=== PATIENT | female | born 1975 | race Hispanic/Latino ===

== ENCOUNTER 2019-11-08 19:00 | Observation (INO) | payer BC ==
[~2019-11-08 19:00] MED LIST: Iopamidol-370 76% 500 ML 1 ML ONE
--- NOTE | 2019-11-08 20:10 | RAD ---
2 view chest: [11/08/2019] Comparison:01/26/2004 HISTORY: Cough FINDINGS: Heart and mediastinal contours are grossly unremarkable. No pneumothorax or pleural fluid. No focal consolidation or alveolar edema. IMPRESSION: No acute findings.
[2019-11-08 20:43] LABS: #Basophils 0.1 thou/uL (0.0-0.2); #Lymphocytes 1.8 thou/uL (1.20-3.40); #Monocytes 0.4 thou/uL (0.11-0.59); #Neutrophils 7.4 thou/uL (1.40-6.50); %Basophils 0.5 % (0.0-1.0); %Eosinophils 0.3 % (0.0-10.0); %Lymphocytes 18.3 % (21.0-51.0); %Monocytes 4.3 % (0.0-10.0); %Neutrophils 76.5 % (42.0-75.0); Mean Corpuscular HGB CONC 33.6 g/dL (32.0-36.0); Mean Corpuscular Volume 89.4 fL (78.0-98.0); Mean Platelet Volume 8.2 fL (7.4-10.4); Platelet Count 282 thou/uL (130-400); RBC Distribution Width 12.4 % (11.5-14.5); White Blood Cell (WBC) Count 9.6 thou/uL (4.8-10.8)
[2019-11-08 20:51] LABS: BHCG - Serum Negative (NEGATIVE); Pregs Control Background? CLEAR/WHITE (CLR/WHITE); Pregs Control Bar Appear? YES (CONTROL BAR)
[2019-11-08 21:06] LABS: ALT (SGPT) 15 U/L (8-55); AST (SGOT) 13 U/L (5-34); Albumin 4.6 g/dL (3.5-5.0); Alkaline Phosphatase 82 U/L (40-110); Anion Gap 13 mmol/L (10-20); BUN (Urea Nitrogen) 9 mg/dL (7.0-18.7); Bilirubin, Total 0.3 mg/dL (0.2-1.2); Calc. Creatinine Clearance 0 mL/min (70-130); Calcium 9.1 mg/dL (7.8-10.44); Carbon Dioxide 25 mmol/L (22-29); Chloride 104 mmol/L (98-107); Estimated GFR-MDRD 81; Globulin 3.8 g/dL (2.4-3.5); Glucose 118 mg/dL (70-105); Potassium 3.8 mmol/L (3.5-5.1); Protein, Total 8.4 g/dL (6.0-8.3); Sodium 138 mmol/L (136-145)
--- NOTE | 2019-11-08 22:47 | CT ---
CT angiogram chest: 11/08/2019 COMPARISON: None HISTORY: Cough and shortness of breath for one week TECHNIQUE: Axial CT imaging at 2.5 mm intervals through the chest with IV contrast using CT angiogram protocol with coronal and sagittal 3-D reformatted imaging FINDINGS: There is an 8 mm hypodense nodule within the left lobe of the thyroid gland. There are mild ly prominent nonenlarged prevascular lymph nodes. There is a mildly enlarged subcarinal lymph node measuring 1.4 cm. No hilar or axillary adenopathy. Limited assessment of the upper abdomen demonstrat es no acute findings. The imaged lung apices are unremarkable. There is extensive nonspecific reticulonodular (tree in bud) opacity within the left upper lobe with a superior/posterior predominance. Reticulonodular densities are also seen throughout the inferior portion of bilateral lower lobes and within the posterior/inferior aspect of the right middle lobe. T he right upper lobe appears grossly unremarkable. No evidence for pulmonary arterial embolism is appreciated on this examination. No endobronchial lesi on is evident. No acute osseous abnormality is seen. IMPRESSION: Extensive nonspecific reticular nodular densities bilaterally suggesting multilobar are a typical infectious pneumonitis. Short-term follow-up chest CT following treatment is advised to document resolution following treatment in 4-6 weeks. No evidence for pulmonary arterial embolism CODE T
[2019-11-09] MEDS ORDERED: cefTRIAXone\\ROCEPHIN 2 GM VIAL ONE (00:04)
[2019-11-09] MEDS ORDERED: Azithromycin 500 MG VIAL ONE (00:33)
--- NOTE | 2019-11-09 00:53 | HP ---
PRIMARY CARE PHYSICIAN: Dr. Ofelia El. CHIEF COMPLAINT: Chest tightness and cough and I can't breathe. HISTORY OF PRESENT ILLNESS: Ms. Smith is a pleasant 44-year-old female who has no significant past medical history. She says that her problems started Wednesday of last week when she started noticing some tightness in her chest. She says she was at work and noticed that she was having trouble breathing. She said she was also feeling extremely hot as well. She went to a walk-in clinic and they did a flu swab and told her she probably had a viral infection or chest cold and sent her home with some symptomatic medicines, but no antibiotics. She says that on Wednesday she was having symptoms off and on and could barely sleep. She went to the ER and they noticed that her blood pressure was elevated. They did an EKG and told her that she had a high temperature and was told that she had a bronchitis. It is reported that her chest x-ray was normal. Then on Wednesday, she was feeling a little better but than by Wednesday, she was starting to feel bad again. She went to see her primary care physician who prescribed clarithromycin as well as a Medrol dose pack. She took the medicines yesterday and this morning, but said that she was getting progressively worse, was not feeling any better, still could not breathe and came to the ER for evaluation. In the ER, she had a chest x-ray, which was essentially negative. CT scan of the chest revealed some reticular nodular pattern, possibly infiltrates and she is being admitted for failed outpatient treatment for probable pneumonia. The patient denies any headaches or dizziness. She did feel a little lightheaded. Denies any pain in her chest, but does admit to the dyspnea, primarily with the coughing. No diarrhea or loose stools. She says she has maintained a good appetite. Otherwise, no other complaints. REVIEW OF SYSTEMS: All systems were reviewed and are negative except for that mentioned in the history of present illness. PAST MEDICAL HISTORY: Negative. PAST SURGICAL HISTORY: She has had a hysterectomy about 2 years ago, bilateral tubal ligation in 2011, surgery for a thyroglossal cyst. ALLERGIES: NO KNOWN DRUG ALLERGIES. SOCIAL HISTORY: She is a former smoker. She quit 5 years ago. She used to smoke about a pack a month. She smoked for about 10 years. Denies any alcohol use. She is single, has 2 children. 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 FAMILY HISTORY: Significant for asthma, hypertension, thyroid disease and borderline diabetes on her mother's side and high cholesterol in her father side. CURRENT MEDICATIONS: Include: 1. Clarithromycin. 2. Albuterol inhaler. 3. Medrol dose pack. PHYSICAL EXAMINATION: GENERAL: She is alert and oriented. She appears to be in no acute distress. She is well developed and well nourished. VITAL SIGNS: Blood pressure 158/80, heart rate 83, respiratory rate of 16, temperature is 98.8 and O2 saturation is 98% on room air. HEENT: Pupils are equal, round, and reactive. Extraocular muscles are intact. Her sclerae are anicteric. There is no erythema, no exudates. NECK: No adenopathy, no bruits. LUNGS: She has some bilateral wheezing as well as rales in both of her lung ortega. CARDIOVASCULAR: She has a normal S1, S2. There is no S3 or S4. No murmurs, clicks or rubs. ABDOMEN: Obese. It is soft, nontender, and nondistended. Positive for bowel sounds. No rebound or guarding. No organomegaly. EXTREMITIES: There is no clubbing, cyanosis. No edema. No calf tenderness. No joint effusions. NEUROLOGIC: Her cranial nerves 12 are intact. Muscle strength is also intact. SKIN AND INTEGUMENT: No skin changes, no rash. LABORATORY DATA: White blood cell count is 9.6, hemoglobin is 15, hematocrit is 44.7, and platelet count is 282. Sodium 138, potassium 3.8, chloride is 104, CO2 is 25, BUN of 9, creatinine 0.78, glucose is 118. Troponin less than 0.010. IMAGING: CT angiogram again, there was evidence for extensive nonspecific reticular nodular densities bilaterally suggesting multilobar and atypical infectious pneumonitis. Chest x-ray was essentially clear and this is by my reading, there is no cardiomegaly, no infiltrates. ASSESSMENT: This is a pleasant 44-year-old female who presents with cough and shortness of breath. Radiographic evidence of atypical pneumonia. She has only had one day of the clarithromycin, which should take care of an atypical process. However, since she was so symptomatic, she will be admitted, started on IV azithromycin and Rocephin, IV steroids and DuoNeb. We will also get a viral respiratory panel and place her on deep venous thrombosis and gastrointestinal prophylaxis and further recommendations to follow. Job ID: [id number]
[2019-11-09] MEDS ORDERED: Acetaminophen 325 MG TAB PO PRN (01:01)
[2019-11-09] MEDS ORDERED: hydrALAZINE 20 MG/ML VIAL SLOW IVP PRN (01:01)
[2019-11-09] MEDS ORDERED: guaiFENesin/Codeine Phosphate 200 mg/20 mg 10 ml UD Cup PO PRN (01:01)
[2019-11-09 01:03] VITALS: BMI 47.8
[2019-11-09 05:45] LABS: #Basophils 0.1 thou/uL (0.0-0.2); #Eosinphils 0.1 thou/uL (0.0-0.7); #Lymphocytes 2.8 thou/uL (1.20-3.40); #Monocytes 0.7 thou/uL (0.11-0.59); #Neutrophils 7.8 thou/uL (1.40-6.50); %Basophils 0.5 % (0.0-1.0); %Eosinophils 0.7 % (0.0-10.0); %Lymphocytes 24.6 % (21.0-51.0); %Monocytes 5.9 % (0.0-10.0); %Neutrophils 68.3 % (42.0-75.0); Mean Corpuscular HGB CONC 33.5 g/dL (32.0-36.0); Mean Corpuscular Hemoglobin 29.9 pg (27.0-31.0); Mean Corpuscular Volume 89.3 fL (78.0-98.0); Mean Platelet Volume 8.1 fL (7.4-10.4); Platelet Count 262 thou/uL (130-400); RBC Distribution Width 12.3 % (11.5-14.5); Red Blood Cell (RBC) Count 4.67 mill/uL (4.20-5.40); White Blood Cell (WBC) Count 11.5 thou/uL (4.8-10.8)
[2019-11-09 06:04] LABS: Anion Gap 14 mmol/L (10-20); BUN (Urea Nitrogen) 11 mg/dL (7.0-18.7); Calc. Creatinine Clearance 179 mL/min (70-130); Calcium 8.6 mg/dL (7.8-10.44); Carbon Dioxide 23 mmol/L (22-29); Chloride 105 mmol/L (98-107); Estimated GFR-MDRD 89; Glucose 104 mg/dL (70-105); Potassium 3.7 mmol/L (3.5-5.1); Sodium 138 mmol/L (136-145)
[2019-11-09] MEDS: Enoxaparin Sodium 40 MG/0.4 ML SYRINGE SC SCH (08:11)
[2019-11-09] MEDS ORDERED: methylPREDNISolone Sod Succ 40 MG VIAL IVP SCH (09:00)
--- NOTE | 2019-11-09 11:15 | PRG ---
DATE OF SERVICE: 11/09/2019 SUBJECTIVE: The patient is seen and examined at the bedside. She is coughing up some greenish looking phlegm. She feels better, but she is very tired. OBJECTIVE: VITAL SIGNS: Blood pressure is 151/87; pulse is 78; respiratory rate is 20; temperature is 97.9, maximal temperature is 99.3; pulse oximetry is 93% on room air. HEENT: Head is atraumatic and normocephalic. Eyes are PERRLA. Sclerae are nonicteric. Oral mucosa is moist. NECK: Supple. LUNGS: Bilateral rales and crackles at both bases. HEART: S1, S2 normal. No S3. No S4. ABDOMEN: Soft, nontender, nondistended. EXTREMITIES: No clubbing, cyanosis, or edema. NEUROLOGIC: Intact. LABORATORY DATA: Showed white count of 11.5, hemoglobin of 14.0, hematocrit 41.6, platelet count is 262,000. Chemistry is within normal limits. test is negative. Microbiology, respiratory virus panel negative. Influenza A and B GISELE negative. IMPRESSION: 1. Atypical pneumonia. 2. Morbid obesity. PLAN: Continue azithromycin. Continue Solu-Medrol 40 mg q.12 for now. Continue ceftriaxone. Gram stain of sputum culture to be done. Continue DVT prophylaxis and continue DuoNebs. Job ID: [id number]
[2019-11-09] MEDS ORDERED: cefTRIAXone\\ROCEPHIN 1 GM in Sodium Chloride 0.9% 100 ML IVPB SCH (23:59)
[2019-11-10] MEDS ORDERED: Azithromycin 500 MG in Sodium Chloride 0.9% 250 ML 250 ML IVPB SCH (01:00)
[2019-11-10] MEDS: Enoxaparin Sodium 40 MG/0.4 ML SYRINGE SC SCH (09:01)
[2019-11-10 12:29] VITALS: BP 147/79; TEMP 98.1
--- NOTE | 2019-11-12 00:59 | EKG ---
Test Reason : Blood Pressure : / mmHG Vent. Rate : 080 BPM Atrial Rate : 080 BPM P-R Int : 136 ms QRS Dur : 094 ms QT Int : 362 ms P-R-T Axes : 056 099 053 degrees QTc Int : 417 ms Normal sinus rhythm Rightward axis Borderline ECG Confirmed by GARRY BRO DO ([id number]), editor managing director FABIOLA SANABRIA ([id number] on 11/12/2019 12:59:29 AM Referred By: Confirmed By:GARRY BRO DO
== END 2019-11-10 12:57 | disposition home or self-care (01) ==
LOC: ERS 19:00 → T4-A 22:21
PROVIDERS: ADMIT Internal Medicine; ATTEND Internal Medicine
DX: J18.9 Pneumonia, unspecified organism (principal); E66.01 Morbid (severe) obesity due to excess calories; Z68.42 Body mass index [BMI] 45.0-49.9, adult; Z79.899 Other long term (current) drug therapy; Z87.891 Personal history of nicotine dependence
CPT/HCPCS: 36415; 71046; 71275; 80048; 80053; 83880; 84484; 84703; 85025; 87070; 87205; 87633; 87804; 93005; 94640; 96365; 96367; 96372; 96375; G0378; J0456; J0696; J1650; J2920; J3490; J7050; J7620; Q9967

== ENCOUNTER 2020-02-02 09:13 | Outpatient (CLI) | payer BC ==
--- NOTE | 2020-02-02 10:50 | CT ---
CT CHEST WITHOUT CONTRAST: Date: 02/02/2020 COMPARISON: CTA chest dated 11/08/2019. HISTORY: Nodular density seen on prior CTA of the chest. TECHNIQUE: Multiple contiguous axial images were obtained in a CT of the chest without contrast. Sagittal and co geneva reformats were performed. FINDINGS: No pulmonary nodules seen on the current examination. The previously seen nodular densities have reso lved and likely represent an infectious process or pulmonary edema. No pneumothorax or pleural effusi ons seen. The heart is normal in size. No hilar or mediastinal lymphadenopathy seen. The visualized subdiaphragmatic structures are unremarkable. The bones are unremarkable. The chest wa ll soft tissues are unremarkable. IMPRESSION: Resolution of previously seen nodular densities in the lungs. No acute intrathoracic abnormality is s een. POS: EAA
== END 2020-02-02 09:14 | disposition home or self-care (01) ==
LOC: CT 09:13
PROVIDERS: ATTEND Internal Medicine Critical Care Medicine
DX: J18.9 Pneumonia, unspecified organism (principal)
CPT/HCPCS: 71250

== ENCOUNTER 2021-02-20 16:09 | Outpatient (CLI) | payer BC | END 2021-02-20 16:10 | disposition home or self-care (01) | LOC: BICMAMMO 16:09 | PROVIDERS: ATTEND Internal Medicine | DX: Z12.31 Encounter for screening mammogram for malignant neoplasm of breast (principal) | CPT/HCPCS: 77063; 77067 ==

== ENCOUNTER 2021-02-20 19:00 | Outpatient (CLI) | payer BC | END 2021-02-20 19:01 | disposition home or self-care (01) | LOC: SLEEPLAB 19:00 | PROVIDERS: ATTEND Internal Medicine | DX: G47.33 Obstructive sleep apnea (adult) (pediatric) (principal); R53.83 Other fatigue; R06.83 Snoring; K21.9 Gastro-esophageal reflux disease without esophagitis; G47.00 Insomnia, unspecified; G47.10 Hypersomnia, unspecified; E66.9 Obesity, unspecified; Z68.43 Body mass index [BMI] 50.0-59.9, adult | CPT/HCPCS: 95810 ==

== ENCOUNTER 2021-07-01 19:30 | Outpatient (CLI) | payer BC | END 2021-07-01 19:31 | disposition home or self-care (01) | LOC: SLEEPLAB 19:30 | PROVIDERS: ATTEND Internal Medicine | DX: G47.33 Obstructive sleep apnea (adult) (pediatric) (principal); K21.9 Gastro-esophageal reflux disease without esophagitis; R06.83 Snoring; R53.83 Other fatigue; G47.10 Hypersomnia, unspecified; E66.9 Obesity, unspecified; Z68.43 Body mass index [BMI] 50.0-59.9, adult | CPT/HCPCS: 95811 ==

== ENCOUNTER 2021-10-21 16:33 | Emergency (ER) | payer BC ==
[2021-10-21 17:26] LABS: #Eosinphils 0.1 thou/uL (0.0-0.7); #Lymphocytes 2.1 thou/uL (1.20-3.40); #Monocytes 0.7 thou/uL (0.11-0.59); #Neutrophils 4.4 thou/uL (1.40-6.50); %Eosinophils 1.6 % (0.0-10.0); %Lymphocytes 28.9 % (21.0-51.0); %Monocytes 8.8 % (0.0-10.0); %Neutrophils 60.6 % (42.0-75.0); Hemoglobin 14.1 g/dL (12.0-16.0); Mean Corpuscular Hemoglobin 29.6 pg (27.0-31.0); Mean Corpuscular Volume 89.9 fL (78.0-98.0); Mean Platelet Volume 7.9 fL (7.4-10.4); Platelet Count 222 thou/uL (130-400); Red Blood Cell (RBC) Count 4.77 mill/uL (4.20-5.40); White Blood Cell (WBC) Count 7.3 thou/uL (4.8-10.8)
[2021-10-21 17:45] LABS: ALT (SGPT) 20 U/L (8-55); AST (SGOT) 15 U/L (5-34); Albumin 4.3 g/dL (3.5-5.0); Alkaline Phosphatase 77 U/L (40-110); Anion Gap 12 mmol/L (10-20); BUN (Urea Nitrogen) 10 mg/dL (7.0-18.7); Bilirubin, Total 0.2 mg/dL (0.2-1.2); Calc. Creatinine Clearance 0 mL/min (70-130); Calcium 9.1 mg/dL (7.8-10.44); Carbon Dioxide 27 mmol/L (22-29); Chloride 103 mmol/L (98-107); Globulin 3.8 g/dL (2.4-3.5); Glucose 91 mg/dL (70-105); Lipase 26 U/L (8-78); Potassium 3.8 mmol/L (3.5-5.1); Protein, Total 8.1 g/dL (6.0-8.3); Sodium 138 mmol/L (136-145)
== END 2021-10-21 19:54 | disposition home or self-care (01) ==
LOC: ERS 16:33
DX: U07.1 COVID-19 (principal); R00.2 Palpitations; I10 Essential (primary) hypertension
CPT/HCPCS: 36415; 71045; 80053; 83690; 84484; 85025; 93005

== ENCOUNTER 2021-11-03 13:06 | Outpatient (CLI) | payer BC | END 2021-11-03 13:07 | disposition home or self-care (01) | LOC: DTY/OP 13:06 | PROVIDERS: ATTEND Internal Medicine | DX: E66.01 Morbid (severe) obesity due to excess calories (principal); Z68.43 Body mass index [BMI] 50.0-59.9, adult | CPT/HCPCS: 97802 ==

== ENCOUNTER 2022-10-02 09:14 | Outpatient (CLI) | payer BC | END 2022-10-02 09:15 | disposition home or self-care (01) | LOC: BICMAMMO 09:14 | PROVIDERS: ATTEND Internal Medicine | DX: Z12.31 Encounter for screening mammogram for malignant neoplasm of breast (principal) | CPT/HCPCS: 77063; 77067 ==

== ENCOUNTER 2024-07-13 08:01 | Outpatient (CLI) | payer BC ==
[2024-07-13] MEDS ORDERED: Regadenoson 0.4 MG/5 ML SYRINGE ONE (08:39)
== END 2024-07-13 08:02 | disposition home or self-care (01) ==
LOC: NM 08:01
PROVIDERS: ATTEND Internal Medicine
DX: I10 Essential (primary) hypertension (principal); R06.00 Dyspnea, unspecified
CPT/HCPCS: 78452; 93017; A9500; J2785

== ENCOUNTER 2024-11-09 14:32 | Outpatient (CLI) | payer BC | END 2024-11-09 14:33 | disposition home or self-care (01) | LOC: BICMAMMO 14:32 | PROVIDERS: ATTEND Internal Medicine | DX: Z12.31 Encounter for screening mammogram for malignant neoplasm of breast (principal) | CPT/HCPCS: 77063; 77067 ==

== ENCOUNTER 2025-06-11 20:37 | Observation (INO) | payer BC ==
[2025-06-12] MEDS ORDERED: Ondansetron PF 4 MG/2 ML Vial IVP PRN (00:52)
[2025-06-12] MEDS ORDERED: Melatonin 3 MG TAB PO PRN (00:52)
[2025-06-12] MEDS ORDERED: Acetaminophen 325 MG TAB PO PRN (00:52)
[2025-06-12] MEDS ORDERED: Senokot S 8.6-50 MG TAB PO PRN (00:52)
[2025-06-12] MEDS ORDERED: Nitroglycerin 0.4 MG TAB (25 Tab Bottle) SL PRN (00:56)
[2025-06-12] MEDS ORDERED: Electrolyte Replacement Protocol 1 EACH FS SCH (01:00)
[2025-06-12 01:02] VITALS: BMI 53.2
[2025-06-12 02:12] LABS: Cardiac Risk 5.5 (Less than 4.5); Cholesterol 169.0 mg/dl (< 200 Desired); HDL Cholesterol 31.0 mg/dL (>60 Neg Risk); LDL Cholesterol, Calculated 118.0 mg/dL; Triglycerides 100.0 mg/dL (Less than 150)
[2025-06-12 04:17] LABS: #Basophils 0.04 10x3/uL (0.0-0.2); #Eosinophils 0.24 10x3/uL (0.0-0.7); #Monocytes 0.43 10x3/uL (0.11-0.59); #Neutrophils 3.67 10x3/uL (1.40-6.50); %Basophils 0.5 % (0.0-1.0); %Eosinophils 3.0 % (0.0-10.0); %Lymphocytes 44.7 % (21.0-51.0); %Monocytes 5.4 % (0.0-10.0); %Neutrophils 46.1 % (42.0-75.0); Hematocrit 41.3 % (36.0-47.0); Hemoglobin 13.2 g/dL (12.0-16.0); Mean Corpuscular Hemoglobin 28.5 pg (27.0-31.0); Mean Corpuscular Volume 89.2 fL (78.0-98.0); Platelet Count 196 10x3/uL (130-400); Red Blood Cell (RBC) Count 4.63 mill/uL (4.20-5.40); White Blood Cell (WBC) Count 7.95 10x3/uL (4.8-10.8)
[2025-06-12 05:23] LABS: ALT (SGPT) 13 U/L (Less than 34); AST (SGOT) 18 U/L (11-34); Albumin 3.7 g/dL (3.1-4.5); Alkaline Phosphatase 69 U/L (40-110); Anion Gap 14 mmol/L (10-20); BUN (Urea Nitrogen) 14 mg/dL (7.0-18.7); Bilirubin, Total 0.4 mg/dL (0.3-1.2); Calc. Creatinine Clearance 198 mL/min (70-130); Calcium 9.0 mg/dL (7.8-10.44); Carbon Dioxide 23 mmol/L (22-29); Chloride 106 mmol/L (98-107); Globulin 3.6 g/dL (2.4-3.5); Glucose 105 mg/dL (70-105); Potassium 3.2 mmol/L (3.5-5.1); Sodium 140 mmol/L (136-145)
[2025-06-12] MEDS: Calcium Carbonate 500 MG ChewTAB PO PRN (08:08)
[2025-06-12] MEDS: Lisinopril 10 MG TAB PO SCH (10:03)
[2025-06-12 10:54] VITALS: BP 150/85; TEMP 97.7
[2025-06-12 12:38] LABS: Potassium 3.8 mmol/L (3.5-5.1)
[2025-06-13] MEDS ORDERED: Lisinopril 10 MG TAB PO SCH (09:00)
== END 2025-06-12 13:36 | disposition home or self-care (01) ==
LOC: OBS 06-12 00:07
PROVIDERS: ADMIT Internal Medicine; ATTEND Hospitalist
PROC: B245ZZ4 Ultrasonography of Left Heart, Transesophageal (ICD-10-PCS; principal; 2025-06-12)
DX: R79.89 Other specified abnormal findings of blood chemistry (principal); I34.0 Nonrheumatic mitral (valve) insufficiency; Z87.891 Personal history of nicotine dependence
CPT/HCPCS: 36415; 80053; 80061; 83036; 84443; 84484; 93005; 93010; 93306; G0378